=== PATIENT | female | born 1995 ===

== ENCOUNTER 2017-07-18 16:26 | Inpatient (IN) | payer MEDICAID ==
[2017-07-18 17:17] VITALS: BMI 23.8
[2017-07-18] MEDS ORDERED: Lactated Ringer's 1,000 ML IV SCH ×3 (17:30→22:17)
[2017-07-18] MEDS ORDERED: Betamethasone Soluspan 30 mg/5mL Inj Susp IM ONE (18:42)
--- NOTE | 2017-07-18 19:40 | OBHP ---
Datetime: 07/18/2017 19:39 IP Adm Impression: , intrauterine IP Admit Plan: Admit to unit IP Chief Complaint: Uterine contractions Datetime: 07/18/2017 17:04 Admit Comment, IP Provider: 21 yo g1 edc 08/22 by 8wk us presents with c/o ctxs since 12am rated 05/30 . Initially ctxs were q5-7 and now 5-3min. Denies srom, bleeding or coitus x2-3days. +Good fm. state s obhx uncomlicated pmhx _ pshx: denies shx: denies tobacco,etoh, or illicit drug use with preg; prior to preg +thc adn tobacco. neg urine tox in 01/04. denies 2nd hand tobacco or thc nkda medic: pnv I: 35wks Eval for PTL P:gbs cx ivf. observe addendum: S: Patient complains of frontal headache today for several hours subsequently relieved with taking Tylenol. She states she has had spots in her vision for the past 2 weeks. She denied denies blurred vision right upper quadrant pain midepigastric pain or persistent nausea and vomiting. O: 130-140/90s repeat exam @ 19:00 4cm I: Threatened labor Elevated blood pressures and rule out preeclampsia p: CBC CMP LDH UA rpR HIV admit for prolonged observation Pelvic Type - PN: Adequate Extremities - PN: Normal Abdomen - PN: Normal Lungs - PN: Normal Heart - PN: Normal Neurologic - PN: Normal HEENT - PN: Normal General - PN: Normal FHR - Baseline A Provider: 130 Membranes, Provider: Intact Contraction Comments Provider: q3-7min Comments, ACOG Physical Exam: O+/ri, vi/hiv _ rpr neg 01/04; hepBneg 01/04 neg urine tox Gestation - Est Wks by US: 35.0 NICHD Variability Prov Fetus A: Moderate 6-25bpm NICHD Accel Fetus A IP Provider: 15X15 FHR Category Provider Fetus A: Category I NICHD Decel Fetus A IP Provider: None Dilatation, Provider: 3 Effacement, Provider: 80 Station, Provider: -2 Genitourinary Exam: Normal
--- NOTE | 2017-07-18 19:58 | OBADHP ---
Datetime: 07/18/2017 19:39 Admit Comment, IP Provider: 21 yo g1 edc 11/2 by 8wk us presents with c/o ctxs since 12am rated 8/10 . Initially ctxs were q5-7 and now 5-3min. Denies srom, bleeding or coitus x2-3days. +Good fm. state s obhx uncomlicated. : Patient complains of frontal headache today for several hours subsequently re lieved with taking Tylenol. She states she has had spots in her vision for the past 2 weeks. She amy ed denies blurred vision right upper quadrant pain midepigastric pain or persistent nausea and vomiti ng. pmhx _ pshx: denies shx: denies tobacco,etoh, or illicit drug use with preg; prior to preg +thc adn tobacco. neg urine tox in 01/04. denies 2nd hand tobacco or thc nkda medic: pnv I: Threatened labor @ 35wks Elevated blood pressures and rule out preeclampsia p: CBC CMP LDH UA rpR HIV admit for prolonged observation IP Chief Complaint: Uterine contractions IP Adm Impression: , intrauterine IP Admit Plan: Admit to unit (Annotations: Data stored by CPN on behalf of user) Datetime: 07/18/2017 17:04 Pelvic Type - PN: Adequate Extremities - PN: Normal Abdomen - PN: Normal Lungs - PN: Normal Heart - PN: Normal Neurologic - PN: Normal HEENT - PN: Normal General - PN: Normal FHR - Baseline A Provider: 130 Membranes, Provider: Intact Contraction Comments Provider: q3-7min Comments, ACOG Physical Exam: O+/ri, vi/hiv _ rpr neg 01/04; hepBneg 01/04 neg urine tox Gestation - Est Wks by US: 35.0 NICHD Variability Prov Fetus A: Moderate 6-25bpm NICHD Accel Fetus A IP Provider: 15X15 FHR Category Provider Fetus A: Category I NICHD Decel Fetus A IP Provider: None Dilatation, Provider: 3 Effacement, Provider: 80 Station, Provider: -2 Genitourinary Exam: Normal
[2017-07-18 20:53] LABS: ALKALINE PHOSPHATASE 206 U/L (38-126); ALT/SGPT 28 U/L (9-52); AST/SGOT 16 U/L (14-36); BILIRUBIN,TOTAL 0.3 mg/dl (0.2-1.3); BLOOD UREA NITROGEN 9 mg/dl (7-17); CARBON DIOXIDE 19 mmol/L (22-30); CHLORIDE 106 mmol/L (98-107); GFR AFRICAN-AMERICAN > 60; GLUCOSE,RANDOM 67 mg/dL (65-105); POTASSIUM 3.5 MMOL/L (3.6-5.0); SODIUM 138 mmol/l (132-148); TOTAL PROTEIN 6.6 G/DL (6.3-8.2)
[2017-07-18 20:54] LABS: ALB/GLOB RATIO 1.1 (1.0-2.1)
[2017-07-18 21:06] LABS: BASO # 0.1 K/uL (0.0-0.2); BASO % 0.3 % (0.0-2.0); EOS % 0.2 % (0.0-4.0); HEMATOCRIT 37.2 % (34.0-47.0); LYMPH # 2.2 K/uL (1.0-4.3); LYMPH % 13.9 % (20.0-40.0); MEAN CELL VOLUME 87.3 fl (81.0-99.0); MEAN CORPUSCULAR HEMOGLOBIN 27.6 pg (27.0-31.0); MEAN CORPUSCULAR HGB CONC 31.6 g/dL (33.0-37.0); MEAN PLATELET VOLUME 12.5 fl (7.2-11.7); MONO # 1.1 K/uL (0.0-0.8); MONO % 7.1 % (0.0-10.0); NEUT # 12.4 K/uL (1.8-7.0); NEUT % 78.5 % (50.0-75.0); NRBC % 0.1 % (0.0-0.0); RED CELL DISTRIBUTION WIDTH 13.2 % (11.5-14.5); WHITE BLOOD COUNT 15.9 K/uL (4.8-10.8)
[2017-07-18 21:17] VITALS: O2SAT 100
[2017-07-18 21:36] LABS: RBC URINE 2 /hpf (0-3); URINE BACTERIA RARE (<OCC); URINE BILIRUBIN NEGATIVE (NEGATIVE); URINE BLOOD NEGATIVE (NEGATIVE); URINE CALCIUM OXALATE CRYSTALS OCC /hpf (<OCC); URINE COLOR YELLOW (YELLOW); URINE GLUCOSE (UA) NEG (Normal); URINE KETONE NEGATIVE (NEGATIVE); URINE LEUKOCYTE ESTERASE MOD Leu/uL (Negative); URINE PROTEIN NEGATIVE (NEGATIVE); URINE UROBILINOGEN 0.2-1.0 mg/dL (0.2-1.0); WBC URINE 11 /hpf (0-5)
[2017-07-18] MEDS ORDERED: Ampicillin 2 GM in Sodium Chloride 0.9% 100 ML IVPB ONE (22:09)
[2017-07-18] MEDS ORDERED: Magnesium Sulfate 2 gm/50 ml 2 GM/50 ML BAG IVPB ONE (22:10)
[2017-07-18] MEDS ORDERED: SODIUM CHLORIDE 0.9% IVPB ONE (22:16)
[2017-07-18] MEDS ORDERED: MAGNESIUM SULFATE IVPB ONE (22:16)
[2017-07-18] MEDS ORDERED: Magnesium Sul 40GM/1L SW 40 GM/1,000 ML ML IV ONE (22:17)
--- NOTE | 2017-07-19 00:38 | OBPN ---
Datetime: 07/18/2017 22:25 IP Progress Impression: Normal progression of labor; Reassuring heart rate; labor IP Procedures: Sterile Vag Exam IP Progress Plan: Antibiotic therapy; Anticipate Vaginal Delivery FHR - Baseline A Provider: 140 Gestation - Est Wks by US: 35.0 Presentation-Admit: Vertex IP Progress Note Comment: Patient in no acute distress, contractions q3-5 min, reports pain 9/10. SVE: cervix dilated 4-5cm, effacement 90, station -1 A: 21yr at 35.0 wks GA, elevated BP at 141/79, thrombocytopenia of 105, labor P: -pt received Betamethasone 12mg Im once at 19:42 -give Ampicillin 2gm IV, then Ampicillin 1gm IV Q4 if pt hasn't delivered -start Magnesium 2gm/hr -discussed case with Dr. Bro -pain management-anesthesia consult -continue monitoring and monitor labor progress Clara Garcia M.D. PGY2 Vital Signs Provider: Reviewed NICHD Accel Fetus A IP Provider: 15X15 FHR Category Provider Fetus A: Category I NICHD Variability Prov Fetus A: Moderate 6-25bpm Dilatation, Provider: 4-5 Effacement, Provider: 90 Station, Provider: -1 NICHD Decel Fetus A IP Provider: None Datetime: 07/18/2017 17:04 Membranes, Provider: Intact Contraction Comments Provider: q3-7min
[2017-07-19] MEDS ORDERED: Oxytocin 30 units/LR 500ML 30 U/500 ML BAG IV ONE ×2 (01:05→12:35)
[2017-07-19] MEDS: AMPicillin 1 GM in Sodium Chloride 0.9% 100 ML IVPB SCH ×3 (02:36→10:45)
[2017-07-19] MEDS ORDERED: Fentanyl/Bupivacaine HCl 250 ML EPI ONE (04:44)
[2017-07-19] MEDS ORDERED: Lidocaine 1% Inj (20ml) ONE (06:34)
[2017-07-19 10:42] LABS: HEMATOCRIT 36.3 % (34.0-47.0); MEAN CELL VOLUME 87.5 fl (81.0-99.0); MEAN CORPUSCULAR HEMOGLOBIN 27.8 pg (27.0-31.0); MEAN CORPUSCULAR HGB CONC 31.8 g/dL (33.0-37.0); RED CELL DISTRIBUTION WIDTH 13.7 % (11.5-14.5); WHITE BLOOD COUNT 23.7 K/uL (4.8-10.8)
[2017-07-19 10:47] LABS: ALB/GLOB RATIO 1.1 (1.0-2.1); ALKALINE PHOSPHATASE 238 U/L (38-126); ALT/SGPT 26 U/L (9-52); AST/SGOT 20 U/L (14-36); BILIRUBIN,TOTAL 0.5 mg/dl (0.2-1.3); BLOOD UREA NITROGEN 9 mg/dl (7-17); CARBON DIOXIDE 20 mmol/L (22-30); CHLORIDE 103 mmol/L (98-107); GFR AFRICAN-AMERICAN > 60; GLUCOSE,RANDOM 92 mg/dL (65-105); POTASSIUM 4.1 MMOL/L (3.6-5.0); SODIUM 137 mmol/l (132-148); TOTAL PROTEIN 6.8 G/DL (6.3-8.2); URIC ACID 6.9 mg/Dl (2.2-7.5)
[2017-07-19 10:52] LABS: MAGNESIUM 6.3 MG/DL (1.6-2.3)
--- NOTE | 2017-07-19 11:30 | OBPN ---
Datetime: 07/19/2017 11:25 IP Progress Impression: Normal progression of labor; Reassuring heart rate IP Informed Consent Obtain: Vaginal Delivery; Risks, Benefits and Alternatives Discussed IP Progress Plan: Continue present management; Augmentation Pool Provider: Positive Membranes, Provider: Ruptured Amniotic Fluid Color, Provider: Clear FHR - Baseline A Provider: 135 Presentation-Admit: Vertex IP Progress Note Comment: Notified that she had small amount cervix noted/bulging mambranes still A: Actove phas eof labor at 35w PLAN: cont pitoicn 5miu/h; AROM again clear Fluid NICHD Accel Fetus A IP Provider: 15X15 FHR Category Provider Fetus A: Category I NICHD Variability Prov Fetus A: Moderate 6-25bpm Dilatation, Provider: 9 Effacement, Provider: 100 Station, Provider: 0 NICHD Decel Fetus A IP Provider: None Datetime: 07/19/2017 08:50 IP Procedures: Artificial ROM Contraction Comments Provider: q3m IP Fetus A Comments: Songram ceph Datetime: 07/19/2017 06:52 Gestation - Est Wks by US: 35.1 Vital Signs Provider: Reviewed; Within Normal Limits
[2017-07-19] MEDS ORDERED: Oxycodone/Acetaminophen 5/325 mg Tab PO PRN (12:46)
[2017-07-19] MEDS ORDERED: SW IV ONE ×2 (12:47→21:30)
[2017-07-19] MEDS ORDERED: MAGNESIUM SUL IV ONE ×2 (12:47→21:30)
[2017-07-19] MEDS ORDERED: Oxytocin 20 units in LR 2,000 ML IV SCH (13:45)
[2017-07-19 19:27] LABS: MEAN CELL VOLUME 85.7 fl (81.0-99.0); MEAN CORPUSCULAR HEMOGLOBIN 27.9 pg (27.0-31.0); MEAN CORPUSCULAR HGB CONC 32.5 g/dL (33.0-37.0); RED CELL DISTRIBUTION WIDTH 13.4 % (11.5-14.5); WHITE BLOOD COUNT 30.7 K/uL (4.8-10.8)
[2017-07-20] MEDS ORDERED: Lactated Ringer's 500 ML IV SCH (03:00)
--- NOTE | 2017-07-20 03:12 | OBDS ---
DELIVERY PERSONNEL Nurse Employment Educational Coord Certified: zoila Delivery Doctor: Marisela Kirk DO Scrub Nurse: zoila Trust Evaluation Supervisor: Maryjane Torres RN Anesthesiologist: Bertin Yoon MD Revenue Liaison: zoila Resident: zoila MATERNAL INFORMATION Delivery Anesthesia: Local; Epidural Medications in Delivery: Pitocin 30 units in 500 cc LR Estimated Blood Loss (ml): 200 Placenta Cultured: Yes Maternal Complications: Other Other Maternal Complications: high BP with headache and visual problem on admission RN Comments: Pt tolerated with no acute distress .Delivery attended by ./Araseli and Mir Nelson at bedside when baby delivered. Provider Comments: Over intact perinuem, of live 9,9. Infant was crying spontaneo usly, placed on mother for skin to skin. Cord clamped and cut by FOB. Placenta delivreedintact spon tansously. MgSO4 shut off when she was pushing IV Pitocin after placetna delvirey and bimanual massage. EBL 200cc LABOR SUMMARY EDC: 08/22/2017 00:00 No. Babies in Womb: 1 Attempted: No Labor Anesthesia: Epidural LABOR INFORMATION Reason for Induction: Other Reason for Induction Other: high BP with on and off headache and seeing floaters in her eyes Onset of Labor: 07/19/2017 04:00 Complete Dilatation: 07/19/2017 11:50 Oxytocin: Induction Group B Beta Strep: sent Antibiotics # of Doses: 4 Antibiotics Time of Last Dose: 1045 Steroids Given: Partial Course Reason Steroids Not Administered: Not Applicable Other Reason Not Administered: pt had one dose of Betamethasone 12 mg at 1942 on 07/18/17 MEMBRANES Membranes Rupture Method: Artificial Rupture of Membranes: 07/19/2017 08:50 Length of Rupture (hrs): 3.67 Amniotic Fluid Color: Clear Amniotic Fluid Amount: Small Amniotic Fluid Odor: Normal STAGES OF LABOR Stage 1 hrs: 7 Stage 1 min: 50 Stage 2 hrs: 0 Stage 2 min: 40 Stage 3 hrs: 0 Stage 3 min: 3 Total Time in Labor hrs: 8 Total Time in Labor min: 33 VAGINAL DELIVERY Episiotomy: None Laceration Extension: N/A Other Laceration: Right inner labial laceration Laceration Repair: Yes Laceration Repair Note: 1% Lidocaine infiltrated (2-3cc). 3.0 Vicryl Rapdie suture was used to repe air inner labial laceration. Initial Vag Sponge Count: 5 Final Vag Sponge Count: 5 Initial Vag Sharps Count: 2 Final Vag Sharps Count: 2 Sponge Count Correct: Yes Sharps Count Correct: Yes Count Comment: one syringe one suture needle 5 lap pads BABY A INFORMATION Delivery Date/Time: 07/19/2017 12:30 Method of Delivery: Vaginal Born in Route : No : N/A Forceps: N/A Vacuum Extraction: N/A Shoulder Dystocia : No SHOULDER DYSTOCIA BABY A Infant Delivery Date/Time: 07/19/2017 12:30 PRESENTATION/POSITION BABY A Presentation: Cephalic Breech Presentation: N/A PLACENTA INFORMATION BABY A Placenta Delivery Time : 07/19/2017 12:33 Placenta Method of Delivery: Spontaneous Placenta Status: Delivered SCORES BABY A Heart Rate 1 min: >100 bpm Resp Effort 1 min: Good Cry Reflex Irritability 1 min: Cough or Sneeze or Pulls Away Muscle Tone 1 min: Active Motion Color 1 min: Body [place], Extremities Blue Resuscitation Effort 1 min: Tactile Stimulation SCORE 1 MIN: 9 Heart Rate 5 min: >100 bpm Resp Effort 5 min: Good Cry Reflex Irritability 5 min: Cough or Sneeze or Pulls Away Muscle Tone 5 min: Active Motion Color 5 min: Body [place], Extremities Blue Resuscitation Effort 5 min: Tactile Stimulation SCORE 5 MIN: 9 INFANT INFORMATION BABY A Gestational Age at Delivery: 35.1 Gestational Status: Outcome : Liveborn Infant Condition : Stable Sex: Female IDENTIFICATION/MEDS BABY A ID Band Number: [id number] ID Band Location: Left Leg; Left Arm Vitamin K Given : Not Given Erythromycin Given: Not Given WEIGHT/LENGTH BABY A Infant Birthweight (gms): 2295 Infant Weight (lb): 5 Infant Weight (oz): 1 CORD INFORMATION BABY A No. Cord Vessels: 3 Nuchal Cord : N/A Nuchal Cord Other: na True Knot: na Infant Cord pH Baby Arterial: na Cord pH Baby Venous: na Cord Blood Taken: Yes Banking/Donate Info: na Suction: Mouth
[2017-07-20 07:09] LABS: BASO % 0.2 % (0.0-2.0); LYMPH % 7.7 % (20.0-40.0); MEAN CELL VOLUME 86.5 fl (81.0-99.0); MEAN CORPUSCULAR HEMOGLOBIN 27.7 pg (27.0-31.0); MEAN PLATELET VOLUME 11.8 fl (7.2-11.7); MONO # 1.4 K/uL (0.0-0.8); MONO % 5.3 % (0.0-10.0); NEUT # 22.5 K/uL (1.8-7.0); NEUT % 86.8 % (50.0-75.0); PLATELET COUNT 108 K/uL (130-400); RED CELL DISTRIBUTION WIDTH 13.7 % (11.5-14.5); WHITE BLOOD COUNT 25.9 K/uL (4.8-10.8)
[2017-07-20] MEDS ORDERED: Pneumococcal 23-Valent Vaccine IM ONE (11:38)
[2017-07-20 12:06] LABS: NEUTROPHIL 89 % (42-75); TOTAL CELLS COUNTED 100
[2017-07-20 12:07] LABS: GIANT PLATELETS PRESENT; LARGE PLATELETS PRESENT; PLATELET CLUMPS PRESENT
--- NOTE | 2017-07-20 17:53 | OBPPN ---
Datetime: 07/20/2017 07:08 PP Pain Prov: Within normal limits PP Nausea Prov: Denies PP Flatus Prov: Yes PP BM Prov: No PP Heart Prov: Normal PP Lungs Prov: Normal PP Abdomen/Uterus Prov: Normal PP Lochia Prov: Normal PP CVA Tenderness Prov: Normal PP Extremities Prov: Normal PP Progress Prov: Abnormal PP Impression Prov: Normal progression PP Plan Prov: Continue present management PP Progress Note Prov: PPD 1 Patient tolerating PO diet, normal urine output, denies visual changes, headaches weakness or drow siness. Abd tenderness 2/10 on pain scale. Denies nausea, vomiting. Has no concerns or complaints at this time. A: 21 yr old PPD 1 s/p s/p magnesium drip P: -discontinue Magnesium drip, d/c IV fluids -transfer to Post -continue regular diet -pain management -monitor urine output -monitor for signs of magnesium toxicity -labs drawn this AM, still pending, f/u serum Mag in AM, CBC case discussed with Dr. Reagan Garcia M.D. PGY2 OB Hospitalist note: This pt was seen and examined by me. Agree with above note. KENDY WASHINGTON PP Procedures: None Vital Signs Provider PP: Reviewed; Within Normal Limits
[2017-07-21] MEDS ORDERED: Prenatal Multivit/Folic Acid/Iron Tab PO SCH (09:00)
[2017-07-21 18:36] VITALS: BP 127/83; PULSE 68; RESP 20; TEMP 98.1
--- NOTE | 2017-07-21 20:41 | OBPPN ---
Datetime: 07/21/2017 07:01 PP Pain Prov: Within normal limits PP Nausea Prov: Denies PP Flatus Prov: Yes PP Breasts Prov: Not Done PP Heart Prov: Normal PP Lungs Prov: Normal PP Abdomen/Uterus Prov: Normal PP Lochia Prov: Normal PP Vulva/Perineum Prov: Not Done PP CVA Tenderness Prov: Normal PP Extremities Prov: Normal PP C/S Incision Prov: Not Applicable PP Progress Prov: Abnormal PP Impression Prov: Normal progression PP Plan Prov: Continue present management; Discharge PP Progress Note Prov: 21 y/o now seen and examined at bedside. Patient had uneventful overnig ht. Patient reports mild pelvic pain controlled w/ pain meds. OOB/Ambulating w/o dizziness. Breast /bottle feeding w/o difficulty. Tolerating PO diet well. Lochia is less than menses in volume. Voi ding freely w/ no blood noted. Reports bowel movement. Denies fevers, headaches, vision changes, ch ills, n/v/d, CP/SOB, lightheadedness and calf pain. PE: GEN: A_O, resting comfortably in bed, NAD Lung: CTA B/L, no wheezing, rhonchi, or rales CVS: S1, S2 wnl, RRR Abd: +BS, firm fundus below umbilicus. EXT: no edema, negative Donal's, calves non-tender Assessment: 21 y/o now s/p on 07/19/2017 @ 12:30 tolerating pain w/ medication, tolerati ng oral intake, adequate urine output, doing well on PPD2. Plan: Percocet 5/325 mg 1-2 tabs PO Q6h prn for mod/severe pain. Ibuprofen 600 mg 1 tab Q6h PO pr n for mild pain. Encourage breast feeding and ambulation. D/C today 07/21/2017 German Gupta M.D. Audit Clerks Supervisor PGY-1 IP PP Procedures: None
--- NOTE | 2017-07-21 20:44 | OBDCSUM ---
Datetime: 07/21/2017 07:22 Disch Instr Activity: Normal activity; May be up to bathroom; May be up for meals Discharge Time: 07/21/2017 12:00 Follow up in weeks, Provider: 5 to 6 weeks
== END 2017-07-21 14:20 | disposition home or self-care (01) | DRG 372 ==
LOC: H.EROB2 16:26 → OBSVTOIN 20:54 → H.EROB 20:54 → INTOOBSV 20:54 → H.L&D 20:54 → H.OB/GYN 07-20 08:02
PROVIDERS: ADMIT Obstetrics & Gynecology; ATTEND Obstetrics & Gynecology
PROC: 4A1HXCZ Monitoring of Products of Conception, Cardiac Rate, External Approach (ICD-10-PCS; 2017-07-18)
PROC: 10E0XZZ Delivery of Products of Conception, External Approach (ICD-10-PCS; principal; 2017-07-19)
PROC: 0HQ9XZZ Repair Perineum Skin, External Approach (ICD-10-PCS; 2017-07-19)
DX: O60.14X0 Preterm labor third trimester with preterm delivery third trimester, not applicable or unspecified (principal); D69.6 Thrombocytopenia, unspecified; O70.0 First degree perineal laceration during delivery; O99.12 Other diseases of the blood and blood-forming organs and certain disorders involving the immune mechanism complicating childbirth; Z37.0 Single live birth; Z3A.35 35 weeks gestation of pregnancy

== ENCOUNTER 2018-04-04 14:15 | Emergency (ER) | payer MEDICAID ==
[2018-04-04 14:21] VITALS: BMI 20.6
[2018-04-04 15:04] LABS: BASO % 0.5 % (0.0-2.0); EOS # 0.1 K/uL (0.0-0.7); EOS % 0.6 % (0.0-4.0); HEMOGLOBIN 13.7 g/dL (12.0-16.0); LYMPH # 2.9 K/uL (1.0-4.3); LYMPH % 34.1 % (20.0-40.0); MEAN CELL VOLUME 88.1 fl (81.0-99.0); MEAN CORPUSCULAR HEMOGLOBIN 28.6 pg (27.0-31.0); MEAN CORPUSCULAR HGB CONC 32.5 g/dL (33.0-37.0); MEAN PLATELET VOLUME 10.2 fl (7.2-11.7); MONO # 0.5 K/uL (0.0-0.8); MONO % 6.2 % (0.0-10.0); NEUT % 58.6 % (50.0-75.0); RBC 4.77 Mil/uL (3.80-5.20); RED CELL DISTRIBUTION WIDTH 14.5 % (11.5-14.5); WHITE BLOOD COUNT 8.6 K/uL (4.8-10.8)
[2018-04-04 15:19] LABS: ALB/GLOB RATIO 1.3 (1.0-2.1); ALBUMIN 4.1 g/dL (3.5-5.0); ALT/SGPT 24 U/L (9-52); AST/SGOT 17 U/L (14-36); BLOOD UREA NITROGEN 12 mg/dl (7-17); CALCIUM 9.1 mg/dL (8.4-10.2); GFR AFRICAN-AMERICAN > 60; GFR NON-AFRICAN AMERICAN > 60
--- NOTE | 2018-04-04 15:32 | ED PDOC ---
HPI: General Adult Time Seen by Provider: 04/04/18 14:32 Chief Complaint (Nursing): Female Genitourinary History Per: Patient Additional Complaint(s): Pt. states she is currently 8 weeks and for the past 2 weeks she's had vaginal bleeding with pelvic cramping. She was seen by Dr. Pearl Westbrook 4 days ago who removed her IUD the same day. States she's had continued bleeding and was advised to come to ED today for further evaluation. LMP: "sometime in mid January 2018. . Denies dysuria, hematuria, hx of ectopic , abdominal pain, fever, back pain, flank pain. Past Medical History Reviewed: Historical Data, Nursing Documentation, Vital Signs Vital Signs: Last Vital Signs Temp 97.4 F L 04/04/18 17:57 Pulse 78 04/04/18 17:57 Resp 19 04/04/18 17:57 BP 126/78 04/04/18 17:57 Pulse Ox 98 04/04/18 17:57 - Medical History PMH: Denies: Depression, Diabetes, HTN - Surgical History Surgical History: No Surg Hx - Family History Family History: States: No Known Family Hx - Home Medications Home Medications: Ambulatory Orders Medication Instructions Recorded Vit No.126/Iron/Folic 1 tab PO DAILY 07/18/17 [Classic Tablet] Docusate Sodium [Colace] 100 mg PO BID #60 capsule 07/21/17 Ferrous Sulfate [Feosol] 325 mg PO DAILY #30 tab 07/21/17 Ibuprofen [Motrin] 600 mg PO Q6 PRN #30 tab 07/21/17 - Allergies Allergies/Adverse Reactions: Allergies Allergy/AdvReac Type Severity Reaction Status Date / Time No Known Allergies Allergy Unverified 09/07/15 20:55 Review of Systems ROS Statement: Except As Marked, All Systems Reviewed And Found Negative Genitourinary Female: Positive for: Vaginal Bleeding, Pelvic Pain Physical Exam - Physical Exam Appears: Positive for: Well, Non-toxic, No Acute Distress Skin: Positive for: Normal Color, Warm. Negative for: Rash Eye Exam: Positive for: Normal appearance Cardiovascular/Chest: Positive for: Regular Rate, Rhythm Respiratory: Positive for: Normal Breath Sounds Gastrointestinal/Abdominal: Positive for: Normal Exam, Soft. 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 Negative for: Discharge, Lesions Back: Positive for: Normal Inspection. Negative for: L CVA Tenderness, R CVA Tenderness Neurologic/Psych: Positive for: Alert, Oriented - Laboratory Results Result Diagrams: 04/04/18 14:50 04/04/18 14:50 - ECG O2 Sat by Pulse Oximetry: 100 - Progress ED Course And Treament: Labs, TVUS ordered. TVUS: 6 weeks 4 days intrauterine gestation. Cardiac activity is not documented. Follow-up indicated based on absence cardiac activity. No evidence of ectopic gestation. Case d/w Dr. Landin who recommends repeat BHCG and US in 48 hours. Pt. informed of results and agrees with care. Disposition - Clinical Impression Clinical Impression: Threatened miscarriage - Patient ED Disposition Is Patient to be Admitted: No - Disposition Referrals: [facility] [Outside] Disposition Time: 17:30 Condition: STABLE Additional Instructions: Return to ED in 48 hours for repeat BHCG and US. Instructions: Threatened Miscarriage (DC), Bleeding With (DC) Forms: Michelle Rodriguez (Dominican), [facility] ED School/Work Excuse Print Language: MOHAWK
[2018-04-04 15:51] LABS: SQUAMOUS EPITHIAL 15 /hpf (0-5); URINE BACTERIA RARE (<OCC); URINE BILIRUBIN NEGATIVE (NEGATIVE); URINE BLOOD LARGE (NEGATIVE); URINE CLARITY CLOUDY (Clear); URINE COLOR YELLOW (YELLOW); URINE GLUCOSE (UA) NEG (Normal); URINE HYALINE CAST 0-2 /hpf (0-2); URINE LEUKOCYTE ESTERASE MOD Leu/uL (Negative); URINE PROTEIN 30 mg/dL (NEGATIVE); URINE UROBILINOGEN 0.2-1.0 mg/dL (0.2-1.0)
--- NOTE | 2018-04-04 16:46 | US ---
PROCEDURE: 1st trimester ultrasound HISTORY: Pelvic pain. Beta HCG results: 5527.1 in its COMPARISON: None available. TECHNIQUE: Standard protocol for this study/examination. FINDINGS: LMP: Unknown Prior examinations from the current : None TECHNIQUE: Real-time 2D imaging, duplex and color Doppler. FINDINGS: Cardiac activity: Absent Measurements: [place] rump length: 0.38 cm Gestational age based on CRL 5 weeks 5 days Gestational age below threshold for calculation of reliable gestational age based on gestational sac. Gestational age derived from LMP: Cannot be ascertained based in the absence of a reliable/ known LMP TIM based on LMP: Cannot be ascertained based in the absence of a reliable/ known LMP TIM based on biometry: 11/28/2018 Gestational concordance cannot be determined Yolk sac identified Uterus: Unremarkable. Cervix: No Cervical abnormalities: Negative examination for cervical dilatation or effacement. Closed cervix measuring 3.1 cm Subchorionic hemorrhage: None UTERUS: 4.8 x 6.6 x 7.9 cm. ADNEXA: Right: 1.3 x 2.1 x 2.8 cm. Normal Doppler arterial waveform documented. Left: 1.8 x 2.2 x 2.6 cm. Normal Doppler arterial waveform documented Fluid in the cul-de-sac: None IMPRESSION: 6 weeks 4 days intrauterine gestation. Cardiac activity is not documented. Follow-up indicated based on absence cardiac activity. No evidence of ectopic gestation.
[2018-04-04 17:58] VITALS: BP 126/78; PULSE 78; RESP 19; TEMP 97.4
[2018-04-04 19:24] VITALS: O2SAT 100
== END 2018-04-04 17:59 | disposition home or self-care (01) ==
LOC: H.ER 14:15
DX: O20.0 Threatened abortion (principal); Z3A.08 8 weeks gestation of pregnancy

== ENCOUNTER 2018-04-06 17:23 | Emergency (ER) | payer MEDICAID ==
[2018-04-06 17:23] VITALS: BMI 20.6
[2018-04-06 17:35] VITALS: BP 112/77; PULSE 74; TEMP 98.6; O2SAT 100
[2018-04-06 17:37] VITALS: RESP 18
--- NOTE | 2018-04-06 18:25 | ED PDOC ---
HPI: General Adult Time Seen by Provider: 04/06/18 17:39 Chief Complaint (Nursing): Abnormal Labs Chief Complaint (Provider): Follow up History Per: Patient History/Exam Limitations: no limitations Additional Complaint(s): 22 year old female presents to the emergency room for follow up. patient reports that she was seen in the ED for abdominal pain and was told that she was 6 weeks but there was no heartbeat. Patient states that she was told to follow up to have a repeat beta, HCG and Ultrasound done. PMD: Laura Duenas Past Medical History Reviewed: Historical Data, Nursing Documentation, Vital Signs Vital Signs: Last Vital Signs Temp 98.6 F 04/06/18 17:35 Pulse 74 04/06/18 17:35 Resp 18 04/06/18 17:34 BP 112/77 04/06/18 17:35 Pulse Ox 100 04/06/18 20:16 - Medical History PMH: Denies: Depression, Diabetes, HTN - Surgical History Surgical History: No Surg Hx - Family History Family History: States: Unknown Family Hx - Social History Current smoker - smoking cessation education provided: No (former smoker) Alcohol: None Drugs: Denies - Home Medications Home Medications: Ambulatory Orders Medication Instructions Recorded Vit No.126/Iron/Folic 1 tab PO DAILY 07/18/17 [Classic Tablet] Docusate Sodium [Colace] 100 mg PO BID #60 capsule 07/21/17 Ferrous Sulfate [Feosol] 325 mg PO DAILY #30 tab 07/21/17 Ibuprofen [Motrin] 600 mg PO Q6 PRN #30 tab 07/21/17 - Allergies Allergies/Adverse Reactions: Allergies Allergy/AdvReac Type Severity Reaction Status Date / Time No Known Allergies Allergy Unverified 09/07/15 20:55 Review of Systems ROS Statement: Except As Marked, All Systems Reviewed And Found Negative Constitutional: Negative for: Fever Gastrointestinal: Negative for: Vomiting, Abdominal Pain Physical Exam - Reviewed Nursing Documentation Reviewed: Yes Vital Signs Reviewed: Yes - Physical Exam Appears: Positive for: Non-toxic, No Acute Distress Head Exam: Positive for: ATRAUMATIC, NORMAL INSPECTION, NORMOCEPHALIC Skin: Positive for: Normal Color, Warm, Dry. Negative for: Rash Eye Exam: Positive for: Normal appearance, EOMI, PERRL. Negative for: Nystagmus ENT: Negative for: Nasal Congestion, Pharyngeal Erythema, Tonsillar Swelling Neck: Positive for: Normal, Painless ROM, Supple Cardiovascular/Chest: Positive for: Regular Rate, Rhythm, Chest Non Tender. Negative for: Murmur, Tachycardia Respiratory: Positive for: Normal Breath Sounds. Negative for: Rales, Rhonchi, Wheezing, Respiratory Distress Gastrointestinal/Abdominal: Positive for: Normal Exam, Bowel Sounds. Negative for: Tenderness, Mass, Guarding, Rebound Back: Positive for: Normal Inspection. Negative for: L CVA Tenderness, R CVA Tenderness, Vertebral Tenderness Extremity: Positive for: Normal ROM. Negative for: Tenderness, Deformity, Swelling Neurologic/Psych: Positive for: Alert, Gait - Laboratory Results Result Diagrams: 04/06/18 18:00 - ECG O2 Sat by Pulse Oximetry: 100 (RA) Pulse Ox Interpretation: Normal - Progress ED Course And Treament: D/W DR. ONOFRE. PATIENT TO F/U WITH PSYCHIATRIC. Medical Decision Making Medical Decision Makin Initial Impression 22 year old female presenting for follow up initial plan: * beta, HCG quantitative * US OB transvaginal * CBC * Reevaluation 1943 EXAM: US , Transvaginal EXAM DATE/TIME: Exam ordered 04/06/2018 5:39 PM CLINICAL HISTORY: 22 years old, female; Pain; complicated by abdominal or pelvic pain; Lower; First trimester; Gestational age or lmp: 6w6d; ; Patient HX: Patient currently bleeding; Additional info: R/O ectopic TECHNIQUE: Real-time transvaginal obstetrical ultrasound of the maternal pelvis and a first trimester with image documentation. Transvaginal imaging was used for better evaluation of the fetus and adnexa. COMPARISON: No relevant prior studies available. FINDINGS: Uterus/cervix: An intrauterine is identified with a pole of 0.4 cm suggesting a 6 week 1 day gestation. Cardiac activity is not identified. This is typically the stage of when the heart rate begins to be detected; this may reflect normal without detectable heart rate yet close followup is recommended however. Exact etiology is indeterminate. No myometrial mass. Ovaries: Unremarkable. No mass. Free fluid: No free fluid. IMPRESSION: An intrauterine is identified with a pole of 0.4 cm suggesting a 6 week 1 day gestation. Cardiac activity is not identified. This is typically the stage of when the heart rate begins to be detected; this may reflect normal without detectable heart rate yet close followup is recommended however. Exact etiology is indeterminate. Documented by Haley Roman acting as a scribe for Linh Boss PA-C. All medical record entries made by the Scribe were at my direction and personally dictated by me. I have reviewed the chart and agree that the record accurately reflects my personal performance of the history, physical exam, medical decision making, and the department course for this patient. I have also personally directed, reviewed, and agree with the discharge instructions and disposition. Disposition - Clinical Impression Clinical Impression: Threatened miscarriage in early - Patient ED Disposition Is Patient to be Admitted: No - Disposition [facility] Disposition: Routine/Home Disposition Time: 20:17 Condition: FAIR Instructions: Threatened Miscarriage (DC) Forms: [facility] ED School/Work Excuse
[2018-04-06 18:37] LABS: BASO % 0.4 % (0.0-2.0); EOS # 0.1 K/uL (0.0-0.7); EOS % 0.9 % (0.0-4.0); HEMOGLOBIN 13.3 g/dL (12.0-16.0); LYMPH % 30.3 % (20.0-40.0); MEAN CELL VOLUME 87.4 fl (81.0-99.0); MEAN CORPUSCULAR HEMOGLOBIN 28.6 pg (27.0-31.0); MEAN CORPUSCULAR HGB CONC 32.8 g/dL (33.0-37.0); MEAN PLATELET VOLUME 10.4 fl (7.2-11.7); MONO # 0.7 K/uL (0.0-0.8); MONO % 6.7 % (0.0-10.0); NEUT # 6.2 K/uL (1.8-7.0); NEUT % 61.7 % (50.0-75.0); RBC 4.65 Mil/uL (3.80-5.20); RED CELL DISTRIBUTION WIDTH 14.6 % (11.5-14.5)
--- NOTE | 2018-04-07 11:01 | US ---
HISTORY: r/o ectopic ; LMP is reported 02/17/2018 suggesting gestational age of 6 weeks 6 days. COMPARISON: Obstetric ultrasound 04/04/2018. TECHNIQUE: Transvaginal pelvic ultrasonography was performed with longitudinal and transverse projections submitted. FINDINGS: UTERUS: Measures 0.1 x 5.2 x 7.0 cm cm. Uterus is anteverted with no discrete myometrial lesion appreciated throughout. Within the endometrial cavity, a gestational sac is identified with yolk sac and pole evident. There is no detectable cardiac activity at this time with mean crown-rump length measurement 0.4 cm corresponding to ultrasonic age of 6 weeks 1 day. Mean sac diameter is 1.03 cm. Ultrasonic age concordant with LMP derived dates. No definite decidual related hemorrhage appreciated at this time. The decidual reaction does appear somewhat heterogeneous in echogenicity nevertheless. CERVIX: No cervical abnormality identified. The internal os is closed with the cervix measuring 3.5 cm. RIGHT OVARY: Measures 3.0 x 1.4 x 2.6 cm. No solid mass. Normal flow. LEFT OVARY: Measures 3.2 x 1.9 x 3.0 cm. No solid mass. Normal flow. FREE FLUID: No significant free fluid noted. OTHER FINDINGS: None. IMPRESSION: A single intrauterine gestation 6 weeks 1 day by ultrasound is identified however there is no detectable cardiac activity in the decidual reaction appears somewhat heterogeneous in echotexture. No obvious hemorrhages related to the decidual reaction however demise is not excluded given that there should be a detectable heart beat at this stage of gestation. Clinical correlation is recommended. Consider follow-up pelvic ultrasound as well. Concordant preliminary report from [facility], 04/06/2018.
== END 2018-04-06 20:20 | disposition home or self-care (01) ==
LOC: H.ER 17:23
DX: O20.0 Threatened abortion (principal); O26.891 Other specified pregnancy related conditions, first trimester; Z87.891 Personal history of nicotine dependence; Z3A.01 Less than 8 weeks gestation of pregnancy

== ENCOUNTER 2018-04-11 12:08 | Emergency (ER) | payer MEDICAID ==
[2018-04-11 12:09] VITALS: BMI 20.6
[2018-04-11 12:22] VITALS: TEMP 98.7
[2018-04-11 14:27] LABS: BASO % 0.8 % (0.0-2.0); EOS # 0.1 K/uL (0.0-0.7); EOS % 1.9 % (0.0-4.0); HEMOGLOBIN 13.7 g/dL (12.0-16.0); LYMPH # 2.7 K/uL (1.0-4.3); LYMPH % 41.5 % (20.0-40.0); MEAN CORPUSCULAR HEMOGLOBIN 29.3 pg (27.0-31.0); MEAN CORPUSCULAR HGB CONC 33.7 g/dL (33.0-37.0); MEAN PLATELET VOLUME 10.7 fl (7.2-11.7); MONO # 0.5 K/uL (0.0-0.8); MONO % 7.8 % (0.0-10.0); NEUT # 3.1 K/uL (1.8-7.0); NRBC % 0.3 % (0.0-0.0); RBC 4.69 Mil/uL (3.80-5.20); RED CELL DISTRIBUTION WIDTH 14.8 % (11.5-14.5); WHITE BLOOD COUNT 6.4 K/uL (4.8-10.8)
--- NOTE | 2018-04-11 14:48 | ED PDOC ---
HPI: Female Pain Time Seen by Provider: 04/11/18 12:39 Chief Complaint (Nursing): Female Genitourinary Chief Complaint (Provider): Threatened miscarriage History Per: Patient History/Exam Limitations: no limitations Onset/Duration Of Symptoms: Days (x1 week) Current Symptoms Are (Timing): Still Present Additional Complaint(s): 22 year old female, who notes she is about 6 weeks and 01, presents to the ED for evaluation of a threatened miscarriage. Patient was seen on 04/04 and 04/06 for vaginal bleeding and concerns. She was advised to follow up for a repeat beta and ultrasound. Patient states the vaginal bleeding is still present, and is "as much as her normal period would be." Additionally, she notes lower abdominal pain yesterday but none today. Otherwise , (-) fever, (-) nausea, (-) vomiting, (-) diarrhea, (-) dysuria, (-) urinary symptoms, (-) back pain, (-) flank pain. LNMP: 02/17/18 PMD: Laura uHrtado Past Medical History Reviewed: Historical Data, Nursing Documentation, Vital Signs Vital Signs: Last Vital Signs Temp 98.7 F 04/11/18 12:21 Pulse 88 04/11/18 12:21 Resp BP 110/74 04/11/18 12:21 Pulse Ox 99 04/11/18 12:21 - Medical History PMH: No Chronic Diseases - Surgical History Surgical History: No Surg Hx - Family History Family History: States: Unknown Family Hx - Social History Current smoker - smoking cessation education provided: Yes (1 cigarette daily) Alcohol: None Drugs: Denies - Home Medications Home Medications: Ambulatory Orders Medication Instructions Recorded Vit No.126/Iron/Folic 1 tab PO DAILY 07/18/17 [Classic Tablet] Docusate Sodium [Colace] 100 mg PO BID #60 capsule 07/21/17 Ferrous Sulfate [Feosol] 325 mg PO DAILY #30 tab 07/21/17 Ibuprofen [Motrin] 600 mg PO Q6 PRN #30 tab 07/21/17 - Allergies Allergies/Adverse Reactions: Allergies Allergy/AdvReac Type Severity Reaction Status Date / Time No Known Allergies Allergy Unverified 09/07/15 20:55 Review of Systems ROS Statement: Except As Marked, All Systems Reviewed And Found Negative Constitutional: Negative for: Fever Gastrointestinal: Negative for: Nausea, Vomiting, Abdominal Pain (admits to abdominal pain yesterday, but not today), Diarrhea Genitourinary Female: Positive for: Vaginal Bleeding ("as much as her normal period would be"). Negative for: Dysuria, Frequency, Incontinence Musculoskeletal: Negative for: Back Pain, Other (flank pain) Physical Exam - Reviewed Nursing Documentation Reviewed: Yes Vital Signs Reviewed: Yes - Physical Exam Comments: GENERAL APPEARANCE: Patient is awake, alert, oriented x 3, in no acute distress. Resting comfortably. SKIN: Warm, dry; (-) cyanosis. EYES: (-) conjunctival pallor, (-) scleral icterus. ENMT: Mucous membranes are moist. Airway patent (-) stridor. NECK: Supple, FROM (-) tenderness, (-) stiffness, (-) lymphadenopathy. CHEST AND RESPIRATORY: (-) rales, (-) rhonchi, (-) wheezes; breath sounds equal bilaterally. Speaking in full sentences. HEART AND CARDIOVASCULAR: (-) irregularity; (-) murmur, (-) gallop. ABDOMEN AND GI: Soft; (-) tenderness, (-) guarding; (-) rebound (-) distention (-) CVA tenderness. EXTREMITIES: (-) deformity NEURO AND PSYCH: Mental status as above; (-) focal findings. Gait steady, speech clear. - Laboratory Results Result Diagrams: 04/11/18 14:00 - ECG O2 Sat by Pulse Oximetry: 99 (RA) Pulse Ox Interpretation: Normal Medical Decision Making Medical Decision Making: Initial Impression: threatened miscarriage, visit for blood test and U/S Time: 13:21 Initial Plan: --Beta-HCG quantitative --CBC with differential --Tylenol 650mg PO --Transvag US 04/04 type and screen O positive and Beta quant was 5,527 04/06 Beta quant was 4,743 15:23 Transvag US FINDINGS: UTERUS: Measures 7.2 x 6.0 x 3.8 cm. Anteverted. Normal in size and appearance. No fibroid or other mass lesion seen. ENDOMETRIUM: Measures 4 mm in diameter. Trace fluid within the endometrial canal. No intrauterine gestation. CERVIX: No cervical abnormality identified. RIGHT OVARY: Measures 3.1 x 2.5 x 1.9 cm. No solid mass. Normal flow. LEFT OVARY: Measures 3.9 x 1.6 x 3.2 cm. No solid mass. Normal flow. FREE FLUID: No significant free fluid noted. OTHER FINDINGS: None. IMPRESSION: Intrauterine gestation no longer identified consistent with completed . Trace residual endometrial fluid. 1530 Labs reviewed. H&H stable. Beta Quant: 328.99 On re-evaluation, patient reports improvement of symptoms, denies any abdominal pain at present. On exam, patient remains AAOx3, in no acute distress. Lungs clear to auscultation, cardiac RRR, abdomen soft, non-tender, repeat neuro exam shows no focal findings. VSS, stable for discharge. Lab/Diagnostic results d/w the patient in great detail. Diagnosis of completed d/w the patient. Based on history, exam and diagnostic results, plan will be for outpatient follow up. Patient instructed to follow-up with pmd / referral provided / the clinic in 1- 2 days without fail. Advised to take medication as prescribed. Return to the emergency room at any time for any new or worsening symptoms. Patient states she fully agrees with and understands discharge instructions. States that she agrees with the plan and disposition. Verbalized and repeated discharge instructions and plan. I have given the patient opportunity to ask any additional questions. ------- Scribe Attestation: Documented by Cici Villela, acting as a scribe for Pam Carson PA-C. Provider Scribe Attestation: All medical entries made by the Scribe were at my direction and personally dictated by me. I have reviewed the chart and agree that the record accurately reflects my personal performance of the history, physical exam, medical decision making, and the department course for this patient. I have also personally directed, reviewed, and agree with the discharge instructions and disposition. 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 RETURN TO ED WITH ANY NEW OR WORSENING SYMPTOMS. Instructions: Miscarriage, Dealing With Miscarriage, Acute Abdomen (Belly Pain) , Adult (DC) Forms: [employer] (Chinese) Print Language: CANADIAN - POA Present On Arrival: None Results - Lab Results Lab Results: 04/11/18 04/11/18 14:00 13:28 WBC 6.4 RBC 4.69 Hgb 13.7 Hct 40.8 MCV 87.0 MCH 29.3 MCHC 33.7 RDW 14.8 H Plt Count 180 MPV 10.7 Neut % (Auto) 48.0 L Lymph % (Auto) 41.5 H [place] % (Auto) 7.8 Eos % (Auto) 1.9 Baso % (Auto) 0.8 Neut # (Auto) 3.1 Lymph # (Auto) 2.7 [place] # (Auto) 0.5 Eos # (Auto) 0.1 Baso # (Auto) 0.0 Beta HCG, Quant 328.99
--- NOTE | 2018-04-11 15:25 | US ---
HISTORY: vaginal bleeding, threatened miscarriage COMPARISON: Pelvic ultrasound dated 04/06/2018. TECHNIQUE: Grayscale, color Doppler and spectral evaluation the pelvis performed transvaginally FINDINGS: UTERUS: Measures 7.2 x 6.0 x 3.8 cm. Anteverted. Normal in size and appearance. No fibroid or other mass lesion seen. ENDOMETRIUM: Measures 4 mm in diameter. Trace fluid within the endometrial canal. No intrauterine gestation. CERVIX: No cervical abnormality identified. RIGHT OVARY: Measures 3.1 x 2.5 x 1.9 cm. No solid mass. Normal flow. LEFT OVARY: Measures 3.9 x 1.6 x 3.2 cm. No solid mass. Normal flow. FREE FLUID: No significant free fluid noted. OTHER FINDINGS: None. IMPRESSION: Intrauterine gestation no longer identified consistent with completed . Trace residual endometrial fluid.
[2018-04-11 16:03] VITALS: BP 110/70; PULSE 80; RESP 16
[2018-04-13 22:18] VITALS: O2SAT 99
== END 2018-04-11 16:03 | disposition home or self-care (01) ==
LOC: H.ER 12:08
DX: O03.9 Complete or unspecified spontaneous abortion without complication (principal); O99.331 Smoking (tobacco) complicating pregnancy, first trimester; Z3A.01 Less than 8 weeks gestation of pregnancy

== ENCOUNTER 2018-12-15 04:04 | Emergency (ER) | payer MEDICAID ==
--- NOTE | 2018-12-15 04:25 | ED PDOC ---
HPI: Influenza Time Seen by Provider: 12/15/18 04:23 Chief Complaint (Provider): Influenza Like Symptoms History Per: Patient Exam Limitations: no limitations Have you had recent travel within the past 21 days to any of: No Onset/Duration Of Symptoms: Days (one) Symptoms include: fever, headache, bodyaches, sore throat, cough (Pt presents to the ED with one full day's symptoms of cough, headache, ear pain, congestion and bodyaches Pt denies NVD and is febrile on presntaiopn), nasal congestion. denies: vomiting, diarrhea, chest pain Sick Contacts (Context): None Past Medical History Reviewed: Historical Data, Nursing Documentation, Vital Signs - Medical History PMH: HTN Denies: Depression, Diabetes, Seizures - Family History Family History: States: Unknown Family Hx, Diabetes, Hypertension - Home Medications Home Medications: Ambulatory Orders Medication Instructions Recorded Vit No.126/Iron/Folic 1 tab PO DAILY 07/18/17 [Classic Tablet] Docusate Sodium [Colace] 100 mg PO BID #60 capsule 07/21/17 Ferrous Sulfate [Feosol] 325 mg PO DAILY #30 tab 07/21/17 Ibuprofen [Motrin] 600 mg PO Q6 PRN #30 tab 07/21/17 Amoxicillin/Clavulanate [Augmentin 1 tab PO BID #20 tab 12/15/18 875 MG-125 MG] Oseltamivir Phosphate [Tamiflu] 75 mg PO BID #10 capsule 12/15/18 - Allergies Allergies/Adverse Reactions: Allergies Allergy/AdvReac Type Severity Reaction Status Date / Time No Known Allergies Allergy Verified 12/15/18 04:25 Review of Systems ROS Statement: Except As Marked, All Systems Reviewed And Found Negative Constitutional: Positive for: Fever, Chills ENT: Positive for: Ear Pain, Nose Pain, Nose Congestion, Throat Pain Respiratory: Positive for: Cough Neurological: Positive for: Headache Physical Exam - Reviewed Nursing Documentation Reviewed: Yes Vital Signs Reviewed: Yes - Physical Exam Appears: Positive for: Well, Non-toxic. Negative for: Uncomfortable Head Exam: Positive for: ATRAUMATIC, NORMAL INSPECTION Skin: Positive for: Normal Color, Warm, Dry. Negative for: Diaphoresis, Pallor, Rash ENT: Positive for: Pharynx Is (erythematous bilateraly; there is no pharyngeal exudate or tonsillar exudate; the tonsils are not enlarged . The TM are absent of light reflex as well as landmarks) Neck: Positive for: Normal, Painless ROM, Supple. Negative for: Decreased ROM Cardiovascular/Chest: Positive for: Regular Rate, Rhythm Respiratory: Positive for: Normal Breath Sounds Pulses-Carotid (L): 2+ Pulses-Carotid (R): 2+ Pulses-Radial (L): 2+ Pulses-Radial (R): 2+ Medical Decision Making Medical Decision Making: I: otitis media bilateral R/O influenza R/O strep P: flu swab strep swab Flu and Strep swabs are both negative I will tx patient based on clinical appearance with Tamiflu and Augmentin 875mg for the ear infection The patient is stable and ready for discharge Disposition - Clinical Impression Clinical Impression: Influenza-like symptoms, Otitis media - Patient ED Disposition Is Patient to be Admitted: No Doctor Will See Patient In The: Office Counseled Patient/Family Regarding: Diagnosis, Need For Followup, Rx Given - Disposition Referrals: Jana Park MD [Medical Doctor] - Disposition: Routine/Home Disposition Time: 05:08 Condition: STABLE Additional Instructions: Follow up with your PMD, Dr Park, in 48-72 hours Return to ED if symptoms worsen or if fever > 102 degrees Prescriptions: Amoxicillin/Clavulanate [Augmentin 875 MG-125 MG] 1 tab PO BID #20 tab Oseltamivir Phosphate [Tamiflu] 75 mg PO BID #10 capsule Instructions: Ear Infections (Otitis Media) (DC), Ear Infections (Otitis Media)
[2018-12-15 04:31] VITALS: BP 120/82; RESP 18; TEMP 100.4
[2018-12-15 05:31] VITALS: PULSE 98; O2SAT 98
== END 2018-12-15 05:33 | disposition home or self-care (01) ==
LOC: H.ER 04:04
DX: J11.83 Influenza due to unidentified influenza virus with otitis media (principal); I10 Essential (primary) hypertension